=== PATIENT | female | born 1990 | race African-American/Black ===

== ENCOUNTER 2017-04-01 22:29 | Emergency (ER) | payer SELFPAY ==
[~2017-04-01] VITALS: Ht 170.2 cm; Wt 73.0 kg
[2017-04-02] MEDS ORDERED: DEXAMETHASONE 10 MG/ML VIAL IM ONE (03:45)
[2017-04-02] MEDS ORDERED: ACETAMINOPHEN WITH CODEINE 120-12MG/5ML UDC PO ONE (03:45)
[2017-04-02 04:04] VITALS: BP 103/72
== END 2017-04-02 05:04 | disposition home or self-care (01) ==
LOC: ER 22:29
DX: J02.9 Acute pharyngitis, unspecified (principal); J45.909 Unspecified asthma, uncomplicated
CPT/HCPCS: 96372; 99283; J1100

== ENCOUNTER 2017-09-05 18:55 | Emergency (ER) | payer OTHER ==
[~2017-09-05] VITALS: Ht 170.2 cm; Wt 78.4 kg
[2017-09-05] MEDS ORDERED: METHOCARBAMOL 500MG TABLET PO ONE (21:00)
[2017-09-05] MEDS ORDERED: KETOROLAC 30MG/ML VIAL IM ONE (21:00)
[2017-09-05 21:08] LABS: CLARITY URINE CLEAR (CLEAR); COLOR URINE YELLOW (YELLOW); KETONES URINE TRACE (NEGATIVE); LEUKOCYTE ESTERASE URINE NEGATIVE (NEGATIVE); NITRITE URINE NEGATIVE (NEGATIVE); OCCULT BLOOD URINE NEGATIVE (NEGATIVE); PROTEIN URINE NEGATIVE (NEGATIVE); SPECIFIC GRAVITY URINE 1.026 (1.005-1.030); UROBILINOGEN URINE 0.2 E.U./dL (0.2-1.0)
[2017-09-05 21:40] VITALS: BP 102/58
== END 2017-09-05 21:43 | disposition home or self-care (01) ==
LOC: ER 18:55
DX: G89.29 Other chronic pain (principal); Z98.51 Tubal ligation status
CPT/HCPCS: 81003; 96372; 99283; J1885

== ENCOUNTER 2018-02-18 22:46 | Emergency (ER) | payer OTHER ==
[~2018-02-18] VITALS: Ht 167.6 cm; Wt 84.5 kg
[2018-02-18 23:14] VITALS: BP 103/76
== END 2018-02-19 01:59 | disposition left against medical advice (07) ==
LOC: ER 22:46
DX: Z53.21 Procedure and treatment not carried out due to patient leaving prior to being seen by health care provider (principal); J45.909 Unspecified asthma, uncomplicated; Z98.51 Tubal ligation status

== ENCOUNTER 2018-08-14 22:40 | Emergency (ER) | payer OTHER ==
[~2018-08-14] VITALS: Ht 170.2 cm; Wt 73.1 kg
[2018-08-15 02:52] LABS: CLARITY URINE CLEAR (CLEAR); COLOR URINE YELLOW (YELLOW); KETONES URINE TRACE (NEGATIVE); LEUKOCYTE ESTERASE URINE NEGATIVE (NEGATIVE); NITRITE URINE NEGATIVE (NEGATIVE); OCCULT BLOOD URINE 3+ (NEGATIVE); PROTEIN URINE NEGATIVE (NEGATIVE)
[2018-08-15] MEDS ORDERED: KETOROLAC 60MG/2ML VIAL IM ONE (03:15)
[2018-08-15 04:30] VITALS: BP 117/64
== END 2018-08-15 04:30 | disposition home or self-care (01) ==
LOC: ER 22:40
DX: N39.0 Urinary tract infection, site not specified (principal); R03.0 Elevated blood-pressure reading, without diagnosis of hypertension
CPT/HCPCS: 81003; 81025; 96372; 99283; J1885